=== PATIENT | female | born 1940 | race Caucasian/White ===

== ENCOUNTER → 2016-11-21 | Outpatient (CLI) | payer MEDICARE, OTHER ==
[~2016-11-21] MED LIST: CEFTIN 250250 MG/TAB PO; CELEXA 20MG20 MG/TAB PO; COZAAR100 MG PO; FLEXERIL 1010 MG/TAB PO; HCTZ 25MG TAB25 MG PO; MEDROL 4MG DOSPA4 MG PO; MIRALAX 255 GM255 GM PO; NAPROSYN500 MG PO; PEPCID 20MG TAB20 MG PO
== END ==
LOC: MC.RAD 10:16
DX: Z12.31 Encounter for screening mammogram for malignant neoplasm of breast (principal)

== ENCOUNTER 2017-03-13 10:41 | Observation (INO) | payer MEDICARE, OTHER ==
[~2017-03-13] VITALS: Ht 162.6 cm; Wt 101.0 kg
[2017-03-13] MEDS ORDERED: HCTZ 25MG TAB25 MG PO (10:49)
[2017-03-13] MEDS ORDERED: COZAAR100 MG PO (10:50)
[2017-03-13] MEDS ORDERED: CELEXA 20MG20 MG/TAB PO (10:50)
[2017-03-13] MEDS ORDERED: MIRALAX 255 GM255 GM PO (10:51)
[2017-03-13 14:27] LABS: BASO % 0.3 % (0.0-2.0); EOS % 0.1 % (0-4.0); GRAN # 7.9 (1.4-6.5); GRAN % 74.2 % (42.2-75.2); LYMPH # 2.1 (1.2-3.4); LYMPH % 19.7 % (20.0-51.0); MEAN CELL VOLUME 92 fl (80.0-100.0); MEAN CORPUSCULAR HEMOGLOBIN 31 pg (27.0-31.0); MEAN CORPUSCULAR HGB CONC 33 g/dl (33.0-37.0); MEAN PLATELET VOLUME 10.5 fl (7.4-10.4); MONO # 0.6 (0.1-0.6); MONO % 5.5 % (1.7-9.3); PLATELET COUNT 248 K/mm3 (130-400); RED BLOOD COUNT 4.26 M/mm3 (4.10-5.30); REDCELL DISTRIBUTION WIDTH-CV 13.3 % (11.5-14.5); WHITE BLOOD COUNT 10.6 K/mm3 (4.8-10.8)
[2017-03-13 14:36] LABS: ADJUSTED CALCIUM 9.3 mg/dL (8.4-10.2); ALBUMIN 3.9 gm/dL (3.5-5.0); BILIRUBIN,TOTAL 0.7 mg/dL (0.0-1.0); CALCIUM 9.2 mg/dL (8.4-10.2); CREATININE, serum 0.85 mg/dL (0.52-1.25); POTASSIUM 3.8 mmol/L (3.4-5.0); TOTAL PROTEIN 7.1 gm/dL (6.4-8.2)
[2017-03-13 14:57] LABS: C-REACTIVE PROTEIN 0.7 mg/dL (0.0-0.9)
[2017-03-13 16:44] LABS: PH 5 (5-8); SQUAMOUS EPITHELIAL 0-2 /hpf; URINE BACTERIA Rare /hpf; URINE BILIRUBIN Negative (NEGATIVE); URINE BLOOD Negative (NEGATIVE); URINE COLOR Yellow; URINE GLUCOSE Negative (NEGATIVE); URINE KETONE Negative (NEGATIVE); URINE RBC 0-2 /hpf; URINE UROBILINOGEN Negative (NEGATIVE)
[2017-03-13 16:45] LABS: URINE APPEARANCE Hazy
[2017-03-13 20:08] VITALS: BP 151/43; PULSE 49; TEMP 98.9
[2017-03-14] VITALS: BP 147/60; PULSE 55; TEMP 98.3
[2017-03-14 04:13] VITALS: BP 129/46; PULSE 54; TEMP 98
[2017-03-14 07:31] VITALS: BP 119/54; PULSE 42; TEMP 97.8
[2017-03-14 11:34] VITALS: BP 151/44; PULSE 55; TEMP 99.1
[2017-03-14] MEDS ORDERED: CEFTIN 250250 MG/TAB PO (13:03)
[2017-03-14] MEDS ORDERED: NAPROSYN500 MG PO (13:04)
[2017-03-14] MEDS ORDERED: MEDROL 4MG DOSPA4 MG PO (13:05)
[2017-03-14] MEDS ORDERED: FLEXERIL 1010 MG/TAB PO (13:05)
[2017-03-14] MEDS ORDERED: PEPCID 20MG TAB20 MG PO (13:06)
== END 2017-03-14 16:30 | disposition home or self-care (01) ==
LOC: COL.ER 10:41 → MEDICAL 18:24
PROVIDERS: Emergency Medicine
DX: M51.16 Intervertebral disc disorders with radiculopathy, lumbar region (principal); M47.26 Other spondylosis with radiculopathy, lumbar region; M41.9 Scoliosis, unspecified; I10 Essential (primary) hypertension; N39.0 Urinary tract infection, site not specified; E66.01 Morbid (severe) obesity due to excess calories; Z87.891 Personal history of nicotine dependence; Z82.49 Family history of ischemic heart disease and other diseases of the circulatory system; Z81.8 Family history of other mental and behavioral disorders; Z83.3 Family history of diabetes mellitus; Z68.41 Body mass index [BMI] 40.0-44.9, adult
CPT/HCPCS: G0378; G8978-GP; G8979-GP; J1650; J1885; J7030; J7512

== ENCOUNTER 2017-06-04 15:30 | Outpatient (RCR) | payer MEDICARE, OTHER | END 2017-06-05 08:50 | disposition home or self-care (01) | LOC: MKS.ESL.PT 15:30 | DX: M51.36 Other intervertebral disc degeneration, lumbar region (principal); M79.604 Pain in right leg | CPT/HCPCS: G0283-GP; G8978-GP; G8979-GP; G8980-GP ==

== ENCOUNTER → 2018-03-07 | Outpatient (CLI) | payer MEDICARE, OTHER | LOC: MC.RAD 09:40 | DX: Z12.31 Encounter for screening mammogram for malignant neoplasm of breast (principal) ==

== ENCOUNTER → 2018-03-18 | Outpatient (CLI) | payer MEDICARE, OTHER | LOC: COL.PUL 08:00 | DX: R06.2 Wheezing (principal) ==

== ENCOUNTER 2019-02-14 11:01 | Emergency (ER) | payer MEDICARE, OTHER ==
[~2019-02-14] VITALS: Ht 157.5 cm; Wt 105.0 kg
[2019-02-14 12:10] LABS: BASO # 0.1 (0.0-0.2); BASO % 0.7 % (0.0-2.0); EOS # 0.1 (0.0-0.7); EOS % 1.6 % (0-4.0); GRAN # 5.1 (1.4-6.5); GRAN % 59.8 % (42.2-75.2); HEMATOCRIT 37.9 % (37.0-47.0); HEMOGLOBIN 12.7 g/dl (12.5-16.0); LYMPH # 2.2 (1.2-3.4); LYMPH % 25.8 % (20.0-51.0); MEAN CELL VOLUME 91 fl (80.0-100.0); MEAN CORPUSCULAR HEMOGLOBIN 30 pg (27.0-31.0); MEAN CORPUSCULAR HGB CONC 34 g/dl (33.0-37.0); MEAN PLATELET VOLUME 10.1 fl (7.4-10.4); MONO % 11.6 % (1.7-9.3); PLATELET COUNT 294 K/mm3 (130-400); RED BLOOD COUNT 4.18 M/mm3 (4.10-5.30)
[2019-02-14 12:19] LABS: ALBUMIN 3.9 gm/dL (3.5-5.0); BILIRUBIN,TOTAL 0.3 mg/dL (0.0-1.0); C-REACTIVE PROTEIN 1.6 mg/dL (0.0-0.9); CALCIUM 9.1 mg/dL (8.4-10.2); CREATININE, serum 0.9 (0.52-1.25); POTASSIUM 3.5 mmol/L (3.4-5.0); TOTAL PROTEIN 7.5 gm/dL (6.4-8.2)
[2019-02-14 12:35] LABS: COLLECTION METHOD CLEAN CATCH
[2019-02-14 12:52] LABS: PH 5 (5-8); URINE APPEARANCE Clear; URINE BACTERIA None Seen /hpf; URINE BILIRUBIN Negative (NEGATIVE); URINE BLOOD 1+ (NEGATIVE); URINE COLOR Yellow; URINE GLUCOSE Negative (NEGATIVE); URINE KETONE Negative (NEGATIVE); URINE LEUKOCYTE ESTERASE 1+ (NEGATIVE); URINE NITRATE Negative (NEGATIVE); URINE PROTEIN(semi-quant) Negative (NEGATIVE); URINE UROBILINOGEN Negative (NEGATIVE)
[2019-02-14 14:12] VITALS: BP 122/82; PULSE 59; TEMP 98.2
== END 2019-02-14 14:35 | disposition home or self-care (01) ==
LOC: COL.ER 11:01
PROVIDERS: Emergency Medicine
DX: K92.1 Melena (principal); K58.9 Irritable bowel syndrome, unspecified; E66.9 Obesity, unspecified; Z87.891 Personal history of nicotine dependence
CPT/HCPCS: J2270; J2405; J7030; Q9967

== ENCOUNTER → 2019-03-18 | Outpatient (CLI) | payer MEDICARE, OTHER | LOC: MC.RAD 14:27 | DX: Z12.31 Encounter for screening mammogram for malignant neoplasm of breast (principal) ==

== ENCOUNTER → 2020-03-23 | Outpatient (CLI) | payer MEDICARE | LOC: MC.RAD 10:16 | DX: Z12.31 Encounter for screening mammogram for malignant neoplasm of breast (principal) ==

== ENCOUNTER 2021-01-12 15:30 | Outpatient (RCR) | payer MEDICARE | END 2021-01-16 | disposition home or self-care (01) | LOC: MKS.ESL.PT | DX: M51.36 Other intervertebral disc degeneration, lumbar region (principal) | CPT/HCPCS: G0283-GP ==

== ENCOUNTER → 2021-05-12 | Outpatient (CLI) | payer MEDICARE | LOC: MC.RAD 11:05 | DX: Z12.31 Encounter for screening mammogram for malignant neoplasm of breast (principal) ==

== ENCOUNTER 2024-01-24 17:53 | Observation (INO) | payer MEDICARE ==
[~2024-01-24] VITALS: Ht 160 cm; Wt 106.4 kg
[2024-01-24 19:03] LABS: BASO # 0.1 K/mm3 (0.0-0.2); BASO % 0.5 % (0.0-2.0); EOS % 0.3 % (0.0-4.0); GRAN # 6.5 K/mm3 (1.4-6.5); HEMATOCRIT 38.6 % (37.0-47.0); LYMPH # 2.1 K/mm3 (1.2-3.4); LYMPH % 22.6 % (20.0-51.0); MEAN CELL VOLUME 90 fl (80.0-100.0); MEAN CORPUSCULAR HEMOGLOBIN 30 pg (27-31); MEAN CORPUSCULAR HGB CONC 34 g/dl (33.0-37.0); MONO # 0.7 K/mm3 (0.1-0.6); MONO % 7.4 % (1.7-9.3); PLATELET COUNT 268 K/mm3 (130-400); RED BLOOD COUNT 4.28 M/mm3 (4.10-5.30); REDCELL DISTRIBUTION WIDTH-CV 13.2 % (11.5-14.5)
[2024-01-24 19:09] LABS: INR 1.1 (0.8-3.0); PROTHROMBIN TIME 12.2 SECONDS (9.7-12.8)
[2024-01-24 19:20] LABS: ALBUMIN 3.9 g/dL (3.4-4.8); BILIRUBIN,TOTAL 0.7 mg/dL (0.2-1.2); CALCIUM 9.6 mg/dL (8.4-10.2); CREATININE, serum 1.21 mg/dL (0.57-1.11); POTASSIUM 3.5 mEq/L (3.5-4.5); TOTAL PROTEIN 7.4 g/dl (6.2-8.1)
[2024-01-24] MEDS ORDERED: NS 50 ML IV SCH (19:44)
[2024-01-24] MEDS ORDERED: Iohexol 350 - 100 ML VIAL IV ONE (19:44)
[2024-01-24] MEDS ORDERED: cloNIDine 0.1 MG TAB PO ONE (20:15)
[2024-01-24 20:58] VITALS: BP 200/72; PULSE 93
[2024-01-24] MEDS ORDERED: niCARdipine 200 ML IV ONE (21:00)
[2024-01-24] MEDS ORDERED: NS 1,000 ML IV SCH (21:15)
[2024-01-24] MEDS ORDERED: niCARdipine 200 ML IV SCH (21:15)
[2024-01-24] MEDS ORDERED: Clopidogrel 300 MG DOSE (75 mg x 4 tabs) PO ONE (21:15)
[2024-01-24] MEDS ORDERED: Acetaminophen 325 MG TAB PO PRN ×2 (21:15→21:30)
[2024-01-24] MEDS ORDERED: Docusate Sodium 100 MG CAP PO PRN ×2 (21:15→22:15)
[2024-01-24 21:19] VITALS: BP 118/78; BP 151/68; PULSE 52; PULSE 60
[2024-01-24] MEDS ORDERED: MICARDIS80 MG PO (21:32)
[2024-01-24] MEDS ORDERED: ASPIRIN 81M81 MG/TA2 PO (21:35)
[2024-01-24] MEDS ORDERED: DULCOLAX STOOL100 MG PO (21:36)
[2024-01-24 21:50] LABS: MAGNESIUM 1.9 mg/dL (1.6-2.6)
[2024-01-24 22:05] LABS: TROPONIN-I < 0.010 ng/mL (0.00-0.033)
[2024-01-24] MEDS ORDERED: Citalopram 20 MG TAB PO SCH (22:13)
[2024-01-24] MEDS ORDERED: VITAMIN D31000 I1 PO (22:14)
[2024-01-24] MEDS ORDERED: OMEGA-3 1000 MG1 CAP PO (22:14)
[2024-01-24] MEDS ORDERED: MULTIPLE VITAMI1 CAP PO (22:15)
[2024-01-24] MEDS ORDERED: hydrALAZINE 20 MG/ML 1 ML VIAL IV PRN (23:15)
[2024-01-25] VITALS (10 sets, daily range): BP systolic 128–175; BP diastolic 53–72; PULSE 52–70; TEMP 97.7–98.3
--- NOTE | 2024-01-25 02:07 | NUR ---
ORIENTED PATIENT TO ROOM AND ASSISTED IN CHANGING INTO YELLOW GOWN. SHE WAS ABLE TO AMBULATE FROM ED BED INTO ROOM WITH STANDBY ASSIST AND NO ASSISTIVE DEVICES. SHE IS STABLE ON ROOM AIR, WITH OXYGEN SATURATION OF 94%. INSTRUCTED PATIENT ANESTHESIA ASSISTANT LIGHT USE AND ADVISED HER TO CALL US IF SHE NEEDS TO GET OUT OF BED DUE TO HER DIZZINESS WHEN STANDING. SHE DENIES ANY HEADACHE, SHORTNESS OF BREATH, OR CHEST PAIN. DISCUSSED ORDERED Q1HR VITALS WITH HOSPITALIST, SHER MERA APRN, SINCE PATIENT'S BLOOD PRESSURE HAS STABILIZED THIS RN WAS ADVISED THAT THIS INTERVENTION MAY BE DISCONTINUED AND PLACE PATIENT ON Q4HR VITAL SIGN MONITORING. CALL LIGHT IS WITHIN REACH. BED IS LOCKED AND IN LOW POSITION WITH BED ALARM ON.
[2024-01-25] MEDS ORDERED: Atorvastatin 40 MG TAB PO SCH (03:48)
[2024-01-25 07:38] LABS: BASO # 0.1 K/mm3 (0.0-0.2); BASO % 0.6 % (0.0-2.0); EOS # 0.1 K/mm3 (0.0-0.7); EOS % 1.6 % (0.0-4.0); GRAN # 4.9 K/mm3 (1.4-6.5); GRAN % 56.1 % (42.2-75.2); HEMOGLOBIN 11.7 g/dl (12.5-16.0); LYMPH # 2.8 K/mm3 (1.2-3.4); LYMPH % 31.6 % (20.0-51.0); MEAN CELL VOLUME 93 fl (80.0-100.0); MEAN CORPUSCULAR HEMOGLOBIN 31 pg (27-31); MEAN CORPUSCULAR HGB CONC 33 g/dl (33.0-37.0); MEAN PLATELET VOLUME 10.2 fl (7.4-10.4); MONO # 0.9 K/mm3 (0.1-0.6); MONO % 9.9 % (1.7-9.3); PLATELET COUNT 266 K/mm3 (130-400); REDCELL DISTRIBUTION WIDTH-CV 13.5 % (11.5-14.5)
[2024-01-25 07:40] LABS: HEMATOCRIT 35.4 % (37.0-47.0)
[2024-01-25 07:46] LABS: CALCIUM 8.9 mg/dL (8.4-10.2); CHOLESTEROL RISK RATIO 4.3; CREATININE, serum 1.09 mg/dL (0.57-1.11); POTASSIUM 3.5 mEq/L (3.5-4.5)
[2024-01-25] MEDS ORDERED: Multivitamin TAB PO SCH (09:00)
[2024-01-25] MEDS ORDERED: Telmisartan 80 MG **** subs to Losartan 100 MG PO SCH (09:00)
[2024-01-25] MEDS ORDERED: Losartan 50 MG TAB PO SCH (09:00)
[2024-01-25] MEDS ORDERED: Clopidogrel 75 MG TAB PO SCH (09:00)
[2024-01-25] MEDS ORDERED: Cholecalciferol (Vit D3) 1000 Units TAB PO SCH (09:00)
[2024-01-25] MEDS ORDERED: hydroCHLOROthiazide 25 MG TAB PO SCH (09:00)
--- NOTE | 2024-01-25 10:35 | NUR ---
PATIENT DOWN TO MRI VIA WHEELCHAIR. ALERT AND ORIENTED.
[2024-01-25] MEDS ORDERED: Gadoterate 20 ML VIAL IV ONE (10:39)
--- NOTE | 2024-01-25 12:30 | NUR ---
PATIENT BACK FROM MRI. ALERT AND ORIENTED.
--- NOTE | 2024-01-25 17:22 | NUR ---
freezer worker met with patient and her sons, Bon (P# [phone]) and Milton (P# [phone]) to discuss discharge planning. Patient lives alone in [place]. PCP is Dr. Madrigal. [facility]. Insurance is Medicare A and B and [employer]. No DPOA-HC, licensed social worker provided blank form. Armando expressed she wanted to speak with all three of her sons before making a decision on DPOA-HC. DME is cane that she recently started using while she was dizzing. Patient reports to normally be indepedent with ADLS. Patient reports she was able to transport herself to appointments. Patient would like to return home at time of discharge. BAILEE discussed with PT what their recommendations would be. BAILEE was notified patient could return home and if she wanted home health she could potentially benefit from those services. BAILEE met with patient and her sons and provided the [email or web address] list of options for home health. Patient stated she felt she was physically doing well and did not need home health. BAILEE explained if patient returned home and felt maybe she did need home health she could get it established through Dr. Madrigal's office. Patient and her sons understood. Discharge plan: Home
--- NOTE | 2024-01-25 18:55 | NUR ---
PATIENT SITTING UP IN BEDSIDE RECLINER TALKING ON PHONE WITH TV ON WITH NO FAMILY PRESENT WITH NO ACUTE DISTRESS NOTED. PATIENT ON ROOM AIR. TELEMETRY INTACT. INT TO RIGHT AC INTACT WITH NO COMPLICATIONS NOTED. BEDSIDE SHIFT REPORT COMPLETED WITH DAVID LARA AT THIS TIME. PATIENT DENIES ANY NEEDS. RECLINER LOCKED AND CALL LIGHT WITHIN REACH.
--- NOTE | 2024-01-25 21:15 | NUR ---
PATIENT RESTING IN BED TALKING ON PHONE WITH TV ON WITH NO FAMILY PRESENT WITH NO ACUTE DISTRESS NOTED. PATIENT ON ROOM AIR. INT TO RIGHT AC INTACT WITH NO COMPLICATIONS NOTED. TELEMETRY INTACT. ASSESSMENT AND MEDICATION ADMINISTRATION COMPLETED AT THIS TIME. PATIENT TOLERATED WELL. PATIENT REQUESTED TO GO TO BATHROOM. PATIENT ASSISTED UP TO BATHROOM. GAIT STEADY. PATIENT VOIDED AND PERFORMED OWN GENESIS CARE. PATIENT ASSISTED BACK TO BED AND HELPED TO REPOSITION FOR COMFORT. EXTRA BLANKET PLACED ON LEGS AND FEET PER PATIENT REQUEST. ALL NEEDS MET. BED IN LOW POSITION WITH WHEELS LOCKED WITH RAILS UP X3 AND CALL LIGHT WITHIN REACH. BED ALARM ON.
[2024-01-26 00:05] VITALS: BP_SYST 128
[2024-01-26 03:47] VITALS: BP 117/55; PULSE 56; TEMP 98
[2024-01-26 04:00] VITALS: BP_SYST 117
[2024-01-26 07:07] LABS: BASO # 0.1 K/mm3 (0.0-0.2); BASO % 0.6 % (0.0-2.0); EOS # 0.2 K/mm3 (0.0-0.7); EOS % 2.6 % (0.0-4.0); GRAN # 4.2 K/mm3 (1.4-6.5); GRAN % 50.4 % (42.2-75.2); HEMOGLOBIN 11.2 g/dl (12.5-16.0); LYMPH % 35.4 % (20.0-51.0); MEAN CELL VOLUME 93 fl (80.0-100.0); MEAN CORPUSCULAR HEMOGLOBIN 31 pg (27-31); MEAN CORPUSCULAR HGB CONC 33 g/dl (33.0-37.0); MEAN PLATELET VOLUME 10.6 fl (7.4-10.4); MONO # 0.9 K/mm3 (0.1-0.6); MONO % 10.9 % (1.7-9.3); PLATELET COUNT 248 K/mm3 (130-400); RED BLOOD COUNT 3.64 M/mm3 (4.10-5.30); REDCELL DISTRIBUTION WIDTH-CV 13.3 % (11.5-14.5)
[2024-01-26 07:14] LABS: HEMATOCRIT 33.7 % (37.0-47.0)
[2024-01-26 07:15] LABS: CALCIUM 8.6 mg/dL (8.4-10.2); CREATININE, serum 0.99 mg/dL (0.57-1.11); POTASSIUM 3.3 mEq/L (3.5-4.5)
[2024-01-26 07:25] VITALS: BP 123/70; PULSE 60; TEMP 98.1
[2024-01-26 08:00] VITALS: BP_SYST 123
[2024-01-26] MEDS ORDERED: *Potassium Replacement Protocol MC SCH (08:30)
[2024-01-26] MEDS ORDERED: Potassium Bicarbonate/Citrate 20 MEQ Effervescent TAB PO SCH (08:30)
[2024-01-26] MEDS ORDERED: LIPITOR 40MG TA40 MG PO (09:45)
[2024-01-26] MEDS ORDERED: PLAVIX 75MG TAB75 MG PO (09:45)
--- NOTE | 2024-01-26 11:00 | NUR ---
PATIENT UP TO SHOWER THIS MORNING. ALERT AND ORIENTED. GAIT STEADY. FAMILY AT BEDSIDE. DENIES NEEDS OR CONCERNS AT THIS TIME.
[2024-01-26 11:25] VITALS: BP 159/76; PULSE 76; TEMP 98.3
--- NOTE | 2024-01-26 12:00 | NUR ---
THIS RN PROVIDED PATIENT WITH DISCHARGE EDUCATION AND INSTRUCTIONS. ALL QUESTIONS ANSWERED. IV TO LEF AC DISCONTINUED. CATHETER INTACT. NO REDNESS, DRAINAGE, OR EDEMA NOTED.
--- NOTE | 2024-01-26 12:15 | NUR ---
PATIENT ESCORTED OFF THE UNIT VIA W/C BY THIS NURSE. ALL BELONGINGS WITH PATIENT.
== END 2024-01-26 12:15 | disposition home health service (06) ==
LOC: COL.ER 17:53 → MEDICAL 21:19
PROVIDERS: Family Medicine; Nurse Practitioner Family; ADMIT Internal Medicine
DX: I65.01 Occlusion and stenosis of right vertebral artery (principal); I65.21 Occlusion and stenosis of right carotid artery; I16.0 Hypertensive urgency; I12.9 Hypertensive chronic kidney disease with stage 1 through stage 4 chronic kidney disease, or unspecified chronic kidney disease; N18.31 Chronic kidney disease, stage 3a; Z87.891 Personal history of nicotine dependence; Z79.899 Other long term (current) drug therapy; Z79.82 Long term (current) use of aspirin
CPT/HCPCS: A9575; G0378; J1650; J2404; J7030; Q3014; Q9967